=== PATIENT | female | born 1965 | race Caucasian/White ===

== ENCOUNTER → 2016-11-06 | Outpatient (CLI) | payer OTHER ==
--- NOTE | 2016-11-07 10:57 | MM ---
Reason for exam: screening (asymptomatic). Last mammogram was performed 2 years and 4 months ago. History: Taking hormonal contraceptives for 1 year beginning at age 40. Physical Findings: A clinical breast exam by your physician is recommended on an annual basis and results should be correlated with mammographic findings. MG Screening Mammo w CAD Bilateral CC and MLO view(s) were taken. Prior study comparison: July 15, 2014, bilateral MG screening mammo w CAD. The breast tissue is extremely dense which could obscure a lesion on mammography. No significant changes when compared with prior studies. ASSESSMENT: Benign, BI-RAD 2 RECOMMENDATION: Routine screening mammogram of both breasts in 1 year.
== END | disposition home or self-care (01) ==
LOC: RADMAMWWP 13:04
PROVIDERS: ATTEND Obstetrics & Gynecology
DX: Z12.31 Encounter for screening mammogram for malignant neoplasm of breast (principal)

== ENCOUNTER → 2018-07-01 | Outpatient (CLI) | payer BC ==
--- NOTE | 2018-07-03 09:05 | MM ---
Reason for exam: screening (asymptomatic). Last mammogram was performed 1 year and 8 months ago. History: Taking hormonal contraceptives for 1 year beginning at age 40. Physical Findings: A clinical breast exam by your physician is recommended on an annual basis and results should be correlated with mammographic findings. MG Screening Mammo w CAD Bilateral CC and MLO view(s) were taken. Prior study comparison: November 06, 2016, bilateral MG screening mammo w CAD. July 15, 2014, bilateral MG screening mammo w CAD. The breast tissue is extremely dense which could obscure a lesion on mammography. There is an increasing group of calcifications in the left upper outer quadrant at anterior depth at the 12:30 position. No suspicious abnormality in the right breast. ASSESSMENT: Incomplete: need additional imaging evaluation, BI-RAD 0 RECOMMENDATION: Special view mammogram of the left breast. [facility] will attempt to contact patient to return for supplemental views.
== END | disposition home or self-care (01) ==
LOC: RADMAMWWP 13:13
PROVIDERS: ATTEND Obstetrics & Gynecology
DX: Z12.31 Encounter for screening mammogram for malignant neoplasm of breast (principal)
CPT/HCPCS: 77067

== ENCOUNTER → 2018-07-22 | Outpatient (CLI) | payer BC ==
--- NOTE | 2018-07-23 08:03 | MM ---
Reason for exam: additional evaluation requested from abnormal screening. Last mammogram was performed 1 month ago. History: Took hormonal contraceptives for 1 year beginning at age 40. Physical Findings: Nurse did not find any significant physical abnormalities on exam. MG Work Up Mamm w CAD LT CC with magnification, LM with magnification, and LM view(s) were taken of the left breast. Prior study comparison: July 01, 2018, bilateral MG screening mammo w CAD. November 06, 2016, bilateral MG screening mammo w CAD. Finding: There are intermediate concern, suspicious grouped/clustered calcifications in the anterior position of the left breast. These results were verbally communicated with the patient and result sheet given to the patient on 07/22/18. ASSESSMENT: Suspicious, BI-RAD 4 RECOMMENDATION: Stereotactic core biopsy of the left breast. Patient requests to call and make an appointment with Dr. Khan. PRELIMINARY REPORT CALLED AND FAXED TO DR. KHAN ON 07/22/18.
== END | disposition home or self-care (01) ==
LOC: RADMAMWWP 13:37
PROVIDERS: ATTEND Obstetrics & Gynecology
DX: R92.8 Other abnormal and inconclusive findings on diagnostic imaging of breast (principal)
CPT/HCPCS: 77065

== ENCOUNTER → 2018-08-04 | Day surgery (SDC) | payer BC ==
[2018-08-04 09:38] VITALS: RESP 16; BMI 22.6
[2018-08-04 11:02] VITALS: BP 112/73; PULSE 59; TEMP 98
--- NOTE | 2018-08-04 12:43 | MM ---
EXAMINATION TYPE: MG stereo VAD BX LT DATE OF EXAM: 08/04/2018 COMPARISON: 07/22/2018 and exams dating back to 07/15/1948 CLINICAL HISTORY: Left breast indeterminate calcifications for which stereotactic guided biopsy were recommended. TECHNIQUE: Stereotactic guided core biopsy of left breast. FINDINGS: Preprocedural spot magnification view was performed on the ML projection. The smaller group of calcifications of the lower inner quadrant are questionably retrospectively seen on prior exams and appear to somewhat layer on the lateral view and therefore medial be followed at 6 months provided the biopsy of the larger group of calcifications in the central outer left breast are benign. The procedure of stereotactic guided core biopsy was explained to the patient. Benefits, alternatives, and risks were discussed. An informed consent was then obtained. Preprocedural timeout was performed. The shortness pathway for biopsy was chosen. Shortness pathway was lateral medial approach. 10 cc of lidocaine buffered with bicarbonate was used to anesthetize the skin surface and deeper soft tissues. Prefire images demonstrated appropriate needle position. 10 cc of lidocaine with epinephrine was utilized to anesthetize the site of biopsy. A vacuum assisted biopsy gun was used to obtain multiple core samples. The patient tolerated the procedure well without any immediate complication. The patient was kept in the radiology department for short stay after the procedure and then discharged home in stable condition. Targeted calcifications are identified in specimen mammogram. Post biopsy mammogram shows the biopsy marker to appear in satisfactory position relative to the targeted area of concern on the preprocedure images. IMPRESSION: SUCCESSFUL, UNCOMPLICATED STEREOTACTIC GUIDED CORE BIOPSY OF A 4 MM GROUP OF INCREASING CALCIFICATIONS IN THE CENTRAL OUTER LEFT BREAST OVERALL LOW SUSPICION, FULL PATHOLOGY RESULTS TO FOLLOW. RECOMMENDATION FOR THE SECOND GROUP OF CALCIFICATIONS WILL BE MADE ON RADIOLOGIC/PATHOLOGIC CORRELATION DESCRIBED ABOVE. 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 Surrounding breast parenchyma shows fibrocystic changes. See Cancer Case Summary. Recommendation Surgical consult of the left breast. Appropriate surgical management. COLTD
== END ==
LOC: RADMAMWWP 09:22
PROVIDERS: ATTEND Student in an Organized Health Care Education/Training Program
DX: D05.12 Intraductal carcinoma in situ of left breast (principal)
CPT/HCPCS: 19081; A4648; J2001; 88305; 88341; 88342

== ENCOUNTER → 2018-08-13 | Day surgery (SDC) | payer BC ==
[2018-08-13 09:25] VITALS: RESP 16; TEMP 97.9; BMI 49.8
[2018-08-13 11:05] VITALS: BP 119/75; PULSE 78
--- NOTE | 2018-08-13 12:14 | MM ---
Stereotactic Mammotome core biopsy left breast. HISTORY: Z83.5 PERSONAL HISTORY OF BREAST CANCER, microcalcifications The calcifications in question within the left breast were targeted by the undersigned. Procedure was performed by the undersigned. Informed consent was obtained and all of the patients questions were answered. The standard sterile technique was utilized and appropriate local anesthesia was obtained with 1% licocaine. Mammotome probe was advanced and multiple core samples were obtained and sent to pathology for interpretation. Microclip marker was deployed at the site of biopsy. Post procedural mammogram demonstrates appropriate deployment of radiopaque clip marker. The patient tolerated the procedure well and left the department in stable condition. Pathology results are pending. IMPRESSION: Successful stereotactic core biopsy left breast with pathology results pending. Pathology Results: Benign LEFT BREAST, NEEDLE CORE BIOPSIES: Fibrocystic and fibroadenomatoid change. Intraductal mineralizations are identified in block A2. Negative for malignancy (please reference the prior malignant breast biopsy, [id number]). Recommendation Follow up mammogram of the left breast in 6 months. KENNETH
== END | disposition home or self-care (01) ==
LOC: RADMAMWWP 09:05
PROVIDERS: ATTEND Student in an Organized Health Care Education/Training Program
DX: N60.12 Diffuse cystic mastopathy of left breast (principal); R92.0 Mammographic microcalcification found on diagnostic imaging of breast; Z88.0 Allergy status to penicillin; Z88.1 Allergy status to other antibiotic agents; Z85.3 Personal history of malignant neoplasm of breast
CPT/HCPCS: 88305; 19081; A4648; J2001

== ENCOUNTER → 2019-03-18 | Outpatient (CLI) | payer BC ==
--- NOTE | 2019-03-18 15:22 | US ---
EXAMINATION TYPE: US transvaginal plus Dopplers DATE OF EXAM: 03/18/2019 COMPARISON: NONE CLINICAL HISTORY: 53-year-old female R10.31 rt lower quadrant pain, N83.20 ovarian cyst, RLQ pain x 2 weeks; prior ovarian cysts; Breast CA/ is on Tamoxifen; irregular menses on this medication; ; H istory of uterine fibroids TECHNIQUE: Transvaginal sonographic images were acquired per physician order. Color Doppler and spec tral waveform analysis of the ovarian arteries and veins. Date of LMP: 01/30/2019 FINDINGS: EXAM MEASUREMENTS: Uterus: 9.9 x 7.4 x 8.4 cm Endometrial Stripe: 0.9 cm Right Ovary: 2.8 x 2.5 x 2.4 cm Left Ovary: 1.4 x 1.8 x 2.7 cm 1. Uterus: anteflexed; oval hypoechoic area in the posterior fundal myometrium suggests a focal fibr oid measuring 4.9 x 3.5 x 3.8cm. 2. Endometrium: unable to correlate thickness with January LMP ( Day 47 LMP) 3. Right Ovary: multiple follicles with largest as involuting appearing cyst = 2.5 x 2.5 x 1.1cm 4. Left Ovary: multiple follicles with largest = 1.1 x 0.5 x 0.9cm Spectral, color and waveform Doppler imaging shows good arterial and venous flow within the ovaries ; there is no evidence for ovarian torsion. 5. Bilateral Adnexa: wnl 6. Posterior cul-de-sac: wnl IMPRESSION: 1. Suggestion of a large 4.9 cm posterior fundal intramural fibroid. 2. 9 mm thick endometrial stripe. 3. Follicular change on both sides. No sonographic evidence for ovarian torsion. 4. No pelvic free fluid.
== END | disposition home or self-care (01) ==
LOC: RADUSWWP 14:18
PROVIDERS: ATTEND Obstetrics & Gynecology
DX: N83.201 Unspecified ovarian cyst, right side (principal); R10.31 Right lower quadrant pain
CPT/HCPCS: 76830

== ENCOUNTER → 2019-07-13 | Outpatient (CLI) | payer BC ==
--- NOTE | 2019-07-13 13:51 | MM ---
Reason for exam: follow-up at short interval from prior study. Last mammogram was performed 1 year ago. History: Patient has history of breast cancer at age 52. Lumpectomy of the left breast, September 2018. Lumpectomy of the left breast, August 2018. Benign MG stereo VAD BX LT of the left breast, August 13, 2018. Malignant MG stereo VAD BX LT of the left breast, August 04, 2018. Radiation therapy of the left breast, 2018. Took hormonal contraceptives for 1 year beginning at age 40. Taking other hormone beginning at age 52. Physical Findings: Nurse did not find any significant physical abnormalities on exam. MG Diagnostic Mammo w CAD MATTHEW Bilateral CC and MLO view(s) were taken. Prior study comparison: July 22, 2018, left breast MG work up mamm w CAD LT. July 01, 2018, bilateral MG screening mammo w CAD. The breast tissue is heterogeneously dense. This may lower the sensitivity of mammography. Benign appearing bilateral calcifications. No suspicious abnormality. Post therapy change on the left. Left biopsy. These results were verbally communicated with the patient and result sheet given to the patient on 07/13/19. ASSESSMENT: Benign, BI-RAD 2 RECOMMENDATION: Follow-up diagnostic mammogram of both breasts in 1 year.
== END | disposition home or self-care (01) ==
LOC: RADMAMWWP 12:52
PROVIDERS: ATTEND Radiology Radiation Oncology
DX: D05.12 Intraductal carcinoma in situ of left breast (principal); Z92.3 Personal history of irradiation; Z17.0 Estrogen receptor positive status [ER+]
CPT/HCPCS: 77066

== ENCOUNTER 2019-12-28 17:50 | Emergency (ER) | payer BC ==
[2019-12-28 18:08] VITALS: BP 134/74; PULSE 60; RESP 18; TEMP 98.4
--- NOTE | 2019-12-28 18:14 | ED ---
Extremity Problem HPI - General Chief complaint: Extremity Problem,Nontraumatic Stated complaint: leg swelling/bruising Time Seen by Provider: 12/28/19 18:14 Source: patient, RN notes reviewed, old records reviewed Mode of arrival: ambulatory Limitations: no limitations - History of Present Illness Initial comments: This is a 54-year-old female DF she presents today for evaluation of unfortunately swelling. Looking activities. Patient has no significant pain in that leg just the swelling. Otherwise no injuries noted, she does have some bruising to the medial aspect of her leg MD Complaint: other (Left leg edema) -: days(s) Location: left, lower extremity History of Same: No Radiation: none Severity scale (1-10): 3 Quality: aching Consistency: constant Improves with: nothing Worsens with: nothing Associated Symptoms: denies other symptoms - Related Data Home Medications Medication Instructions Recorded Confirmed Ibuprofen [Motrin] 400 mg PO DAILY PRN 07/31/18 08/13/18 Multivitamin,Therapeutic [Thera] 1 each PO DAILY 07/31/18 08/13/18 diazePAM [Valium] 2 mg PO ONCE 08/13/18 08/13/18 Allergies Allergy/AdvReac Type Severity Reaction Status Date / Time minocycline [From Minocin] Allergy Rash/Hives Verified 12/28/19 18:07 Penicillins Allergy Rash/Hives Verified 12/28/19 18:07 Review of Systems ROS Statement: Those systems with pertinent positive or pertinent negative responses have been documented in the HPI. ROS Other: All systems not noted in ROS Statement are negative. Past Medical History Past Medical History: No Reported History History of Any Multi-Drug Resistant Organisms: None Reported Past Surgical History: Hernia Repair Additional Past Surgical History / Comment(s): Hernia surgeries x4 Past Anesthesia/Blood Transfusion Reactions: No Reported Reaction Past Psychological History: Anxiety Past Alcohol Use History: None Reported Past Drug Use History: None Reported General Exam Limitations: no limitations General appearance: alert, in no apparent distress Head exam: Present: atraumatic, normocephalic, normal inspection Eye exam: Present: normal appearance, PERRL, EOMI. Absent: scleral icterus, conjunctival injection, periorbital swelling ENT exam: Present: normal exam, mucous membranes moist Neck exam: Present: normal inspection. Absent: tenderness, meningismus, lymphadenopathy Respiratory exam: Present: normal lung sounds bilaterally. Absent: respiratory distress, wheezes, rales, rhonchi, stridor Cardiovascular Exam: Present: regular rate, normal rhythm, normal heart sounds. Absent: systolic murmur, diastolic murmur, rubs, gallop, clicks GI/Abdominal exam: Present: soft, normal bowel sounds. Absent: distended, tenderness, guarding, rebound, rigid Extremities exam: Present: normal inspection, full ROM, normal capillary refill, other (Mild left lower extremity edema). Absent: tenderness, pedal edema, joint swelling, calf tenderness Back exam: Present: normal inspection Neurological exam: Present: alert, oriented X3, CN II-XII intact Psychiatric exam: Present: normal affect, normal mood Skin exam: Present: warm, dry, intact, normal color. Absent: rash Course Vital Signs 12/28/19 18:03 Temperature 98.4 F Pulse Rate 60 Respiratory 18 Rate Blood Pressure 134/74 O2 Sat by Pulse 97 Oximetry - Reevaluation(s) Reevaluation #1: 12/28/19 20:04 Medical records reviewed Reevaluation #2: 12/28/19 20:04 No acute disease, patient informed of results Medical Decision Making - Medical Decision Making 54 female to the ER for evaluation presents today for evaluation of lower Shorty swelling ultrasound negative for DVT patient can be discharged home - Radiology Data Radiology results: report reviewed (Ultrasound left lower extremity negative for acute disease), image reviewed Disposition Clinical Impression: Edema of lower extremity, Leg edema, left Disposition: HOME SELF-CARE Condition: Good Instructions (If sedation given, give patient instructions): Leg Edema (ED), Leg Pain (ED) Is patient prescribed a controlled substance at d/c from ED?: No Referrals: Jean Marie Cooper DO [Primary Care Provider] - 1-2 days
--- NOTE | 2019-12-28 19:47 | US ---
EXAMINATION TYPE: US venous doppler duplex LE LT DATE OF EXAM: 12/28/2019 7:34 PM COMPARISON: NONE CLINICAL HISTORY: DVT. Left leg swelling x 2 days. Bruising posterior knee area. No hx of DVT. Patien t does not take blood thinners. SIDE PERFORMED: Left TECHNIQUE: The lower extremity deep venous system is examined utilizing real time linear array sonog chase with graded compression, doppler sonography and color-flow sonography. VESSELS IMAGED: External Iliac Vein (EIV) Common Femoral Vein Deep Femoral Vein Greater Saphenous Vein * Femoral Vein Popliteal Vein Small Saphenous Vein * Proximal Calf Veins (* superficial vessels) Left common femoral, superficial femoral, optimal veins all compress normally and show no abnormal jose lino echoes. There are normal venous waveforms. Left Leg: No evidence of DVT in veins imaged at this time from prox calf veins to EIV. IMPRESSION: No evident deep venous arthrosis at or above the left knee.
== END 2019-12-28 20:02 | disposition home or self-care (01) ==
LOC: EC 17:50
DX: R60.0 Localized edema (principal); F41.9 Anxiety disorder, unspecified; Z79.899 Other long term (current) drug therapy; Z88.0 Allergy status to penicillin; Z88.1 Allergy status to other antibiotic agents
CPT/HCPCS: 99284

== ENCOUNTER → 2020-07-19 | Outpatient (CLI) | payer BC ==
--- NOTE | 2020-07-19 14:26 | MM ---
Reason for exam: additional evaluation requested from prior study. Last mammogram was performed 1 year ago. History: Patient has history of breast cancer at age 52. Lumpectomy of the left breast, September 2018. Lumpectomy of the left breast, August 2018. Benign MG stereo VAD BX LT of the left breast, August 13, 2018. Malignant MG stereo VAD BX LT of the left breast, August 04, 2018. Radiation therapy of the left breast, 2018. Took hormonal contraceptives for 12 years beginning at age 17. Taking other hormone beginning at age 52. Physical Findings: Nurse did not find any significant physical abnormalities on exam. MG Diagnostic Mammo w CAD MATTHEW Bilateral CC and MLO view(s) were taken. Prior study comparison: July 13, 2019, bilateral MG diagnostic mammo w CAD MATTHEW. July 22, 2018, left breast MG work up mamm w CAD LT. The breast tissue is heterogeneously dense. This may lower the sensitivity of mammography. Post surgical and post therapy change left breast. Scattered punctate calcifications right breast are unchanged. Continued short term follow up recommended of the left breast to assess for any evolving post therapy changes. These results were verbally communicated with the patient and result sheet given to the patient on 07/19/20. ASSESSMENT: Probably benign, BI-RAD 3 RECOMMENDATION: Follow-up diagnostic mammogram of the left breast in 6 months.
== END ==
LOC: RADMAMWWP 12:46
PROVIDERS: ATTEND Radiology Radiation Oncology
DX: D05.12 Intraductal carcinoma in situ of left breast (principal); Z85.3 Personal history of malignant neoplasm of breast
CPT/HCPCS: 77066

== ENCOUNTER → 2021-02-07 | Outpatient (CLI) | payer BC ==
--- NOTE | 2021-02-08 12:07 | MM ---
Reason for exam: follow-up at short interval from prior study. Last mammogram was performed 7 months ago. History: Patient is postmenopausal and has history of breast cancer at age 52. Lumpectomy of the left breast, September 2018. Lumpectomy of the left breast, August 2018. Benign MG stereo VAD BX LT of the left breast, August 13, 2018. Malignant MG stereo VAD BX LT of the left breast, August 04, 2018. Radiation therapy of the left breast, 2018. Took hormonal contraceptives for 12 years beginning at age 17. Taking other hormone for 2 years. Physical Findings: Nurse did not find any significant physical abnormalities on exam. MG Diagnostic Mammo LT w CAD CC and MLO view(s) were taken of the left breast. Prior study comparison: July 19, 2020, bilateral MG diagnostic mammo w CAD MATTHEW. July 13, 2019, bilateral MG diagnostic mammo w CAD MATTHEW. July 22, 2018, left breast MG work up mamm w CAD LT. The breast tissue is heterogeneously dense. This may lower the sensitivity of mammography. Previous mammotome biopsy in the left breast. Post surgical and post therapy change left breast. A few punctate calcifications are redemonstrated. No significant new findings when compared with previous films. These results were verbally communicated with the patient and result sheet given to the patient on 02/07/21. ASSESSMENT: Probably benign, BI-RAD 3 RECOMMENDATION: Follow-up diagnostic mammogram of both breasts in 6 months. (left on going post therapy follow up to assess for any evolving changes) Back on schedule.
== END | disposition home or self-care (01) ==
LOC: RADMAMWWP 14:55
PROVIDERS: ATTEND Radiology Radiation Oncology
DX: R92.1 Mammographic calcification found on diagnostic imaging of breast (principal); Z78.0 Asymptomatic menopausal state; Z85.3 Personal history of malignant neoplasm of breast; Z79.3 Long term (current) use of hormonal contraceptives
CPT/HCPCS: 77065

== ENCOUNTER → 2021-08-10 | Outpatient (CLI) | payer BC ==
--- NOTE | 2021-08-10 14:08 | MM ---
Reason for exam: additional evaluation requested from prior study. Last mammogram was performed 6 months ago. History: Patient is postmenopausal and has history of breast cancer at age 52. Lumpectomy of the left breast, September 2018. Lumpectomy of the left breast, August 2018. Benign MG stereo VAD BX LT of the left breast, August 13, 2018. Malignant MG stereo VAD BX LT of the left breast, August 04, 2018. Radiation therapy of the left breast, 2018. Took hormonal contraceptives for 12 years beginning at age 17. Taking other hormone for 2 years. Physical Findings: A clinical breast exam by your physician is recommended on an annual basis and results should be correlated with mammographic findings. MG Diagnostic Mammo w CAD MATTHEW Bilateral CC and MLO view(s) were taken. Prior study comparison: February 07, 2021, left breast MG diagnostic mammo LT w CAD. July 19, 2020, bilateral MG diagnostic mammo w CAD MATTHEW. The breast tissue is heterogeneously dense. This may lower the sensitivity of mammography. Finding #1: There is decreased size, skin thickening and architectural distortion in the left breast consistent with known post treatment changes. Finding #2: There are typically benign vascular, round calcifications in both breasts. There is no discrete abnormality. ASSESSMENT: Benign, BI-RAD 2 RECOMMENDATION: Follow-up diagnostic mammogram of both breasts in 1 year.
== END | disposition home or self-care (01) ==
LOC: RADMAMWWP 07:39
PROVIDERS: ATTEND Radiology Radiation Oncology
DX: R92.8 Other abnormal and inconclusive findings on diagnostic imaging of breast (principal); Z78.0 Asymptomatic menopausal state; Z85.3 Personal history of malignant neoplasm of breast; Z92.3 Personal history of irradiation
CPT/HCPCS: 77066

== ENCOUNTER → 2021-11-14 | Outpatient (CLI) | payer BC ==
--- NOTE | 2021-11-14 13:23 | XR ---
EXAMINATION TYPE: XR chest 2V DATE OF EXAM: 11/14/2021 COMPARISON: None INDICATION: TECHNIQUE: Frontal and lateral views of the chest are obtained. FINDINGS: The heart size is normal. The pulmonary vasculature is normal. The lungs are clear. There is a scoliosis of the upper thoracic spine with convexity to the left. IMPRESSION: 1. No acute pulmonary process.
== END | disposition home or self-care (01) ==
LOC: RADXRMAIN 13:01
PROVIDERS: ATTEND Internal Medicine
DX: R06.2 Wheezing (principal)
CPT/HCPCS: 71046

== ENCOUNTER → 2022-02-22 | Outpatient (CLI) | payer BC ==
--- NOTE | 2022-02-22 14:36 | CT ---
EXAMINATION TYPE: CT ChestAbdPelvis w con CT DLP: 1372 mGycm, Automated exposure control for dose reduction was used. DATE OF EXAM: 02/22/2022 2:20 PM COMPARISON: Pelvic ultrasound 03/18/2019. CLINICAL INDICATION:Female, 56 years old with history of C50.412 breast ca; [facility], Hx of breast cancer 2019, left side lumpectomy, multiple hernia surgeries. Pt had covid in November, was diagnosed with a pul monary embolism. Pt feels like she has not been able to take a deep inspiration since November. Technique: Multiple axial images of the chest, abdomen, and pelvis were obtained following the intrav enous administration of 100 mL Isovue-370. Two-dimensional coronal and sagittal reconstructions were obtained. Findings: CHEST: LUNGS/ PLEURA: No pneumothorax, pleural effusion, focal consolidation. Left upper lobe anterior subpl eural reticular opacities likely related to post radiation changes. No suspicious pulmonary nodules o r masses. AIRWAY: Patent and unremarkable.. HEART: Size within normal limits. No pericardial effusion. MEDIASTINUM: No gross evidence of adenopathy. VASCULATURE: No aortic aneurysm. MUSCULOSKELETAL: No acute osseous abnormalities. No aggressive osseous lesion. Mild dextrocurvature o f the thoracic spine. SOFT TISSUES/LYMPH NODES: Unremarkable. No pathologic axillary adenopathy. LOWER NECK: No significant findings. ABDOMEN: ABDOMEN LIVER: Peripheral right hepatic lobe subcentimeter hyperattenuating focus. This blends with surroundi ng parenchyma on the delayed phase and likely represents a shunt. GALLBLADDER AND BILE DUCTS: Unremarkable. PANCREAS: Unremarkable. SPLEEN: Unremarkable. ADRENAL GLANDS: Unremarkable. KIDNEYS AND URETERS: No evidence of hydronephrosis or renal calculus. The kidneys enhance symmetrical ly without suspicious focal lesion. Contrast is demonstrated within both collecting systems on the de layed imaging PELVIS BLADDER: Unremarkable REPRODUCTIVE: Anteverted uterus with heterogenous enhancement with hypodense lesion in the posterior uterine fundus measuring up to 3.9 cm which corresponds to previously seen fibroid on ultrasound. Sug gested endometrial thickening of 2.0 cm. No suspicious adnexal mass. ABDOMEN & PELVIS STOMACH AND BOWEL: Stomach and duodenum are unremarkable. No focal wall thickening or surrounding inf lammatory changes. No evidence of bowel obstruction. PERITONEUM: No evidence of pneumoperitoneum or free fluid. VASCULATURE: No evidence of aortic aneurysm. MUSCULOSKELETAL: No acute osseous abnormalities. No aggressive osseous lesion. Grade 1 anterior listh esis of L5 on S1 with right L5 pars defect. LYMPH NODES: No gross evidence for lymphadenopathy. SOFT TISSUE/ABDOMINAL WALL: Tiny fat filled umbilical hernia. IMPRESSION: 1. No evidence of acute thoracic process. 2. Post treatment changes of the left chest. 3. Heterogenous enhancement with suggestion of endometrial thickening and hypodense lesion within th e posterior uterine fundus corresponding to known fibroid. Further evaluation with pelvic ultrasound is recommended.
== END | disposition home or self-care (01) ==
LOC: RADCTMAIN 11:50
PROVIDERS: ATTEND Internal Medicine Hematology & Oncology
DX: C50.412 Malignant neoplasm of upper-outer quadrant of left female breast (principal); R93.89 Abnormal findings on diagnostic imaging of other specified body structures
CPT/HCPCS: 71260; 74177; Q9967

== ENCOUNTER → 2022-08-09 | Outpatient (CLI) | payer BC ==
--- NOTE | 2022-08-12 08:08 | MM ---
Reason for Exam: Screening (asymptomatic). Last screening mammogram was performed 12 month(s) ago. Patient History: Menarche at age 14. First Full-Term at age 24. Postmenopausal. Breast cancer, left, age 52. Hormonal Contraceptives for 12 years from age 17 until age 29. 09/2018, Lumpectomy on the Left side. 08/2018, Lumpectomy on the Left side. 08/13/2018, Benign Core Biopsy on the left side. 08/04/2018, Malignant Core Biopsy on the left side. 2018, Radiation Therapy on the left side. Prior Study Comparison: 07/19/2020 Bilateral Diagnostic Mammogram, [facility]. 02/07/2021 Left Diagnostic Mammogram, [facility]. 08/10/2021 Bilateral Diagnostic Mammogram, [facility]. Tissue Density: The breast tissue is heterogeneously dense. This may lower the sensitivity of mammography. Findings: Analyzed By CAD. There is no suspicious group of microcalcifications or new suspicious mass in either breast. Stable postoperative distortion left breast. Overall Assessment: Benign, BI-RAD 2 Management: Screening Mammogram of both breasts in 1 year. A clinical breast exam by your physician is recommended on an annual basis and results should be correlated with mammographic findings. Electronically signed and approved by: Coy Laguerre M.D. Radiologis
== END | disposition home or self-care (01) ==
LOC: RADMAMWWP 08:26
PROVIDERS: ATTEND Internal Medicine Hematology & Oncology
DX: Z12.31 Encounter for screening mammogram for malignant neoplasm of breast (principal); Z78.0 Asymptomatic menopausal state
CPT/HCPCS: 77063; 77067